=== PATIENT | male | born 1990 | race Caucasian/White ===

== ENCOUNTER 2022-09-17 11:13 | Outpatient (CLI) | payer BC, SELFPAY ==
[2022-09-17 11:28] LABS: Basophils Absolute Auto 0.09 K/mm3 (0.00-0.10); Basophils Percent Auto 0.9 % (0.0-1.0); Eosinophils Absolute Auto 0.34 K/mm3 (0.02-0.50); Eosinophils Percent Auto 3.5 % (1.0-6.0); Hematocrit 42.3 % (40.0-54.0); Immature Granulocyte Absolute 0.03 K/mm3 (0.00-0.00); Immature Granulocyte Percent A 0.3 % (0.0-0.0); Lymphocytes Absolute Auto 2.65 K/mm3 (1.10-4.50); Lymphocytes Percent Auto 27.6 % (18.0-42.0); Mean Corpuscular HGB Conc 33.1 g/dL (32.0-36.0); Mean Corpuscular Volume 87.8 fL (78.0-102.0); Mean Platelet Volume 10.6 fl (8.7-11.0); Monocytes Absolute Auto 0.63 K/mm3 (0.10-0.90); Monocytes Percent Auto 6.6 % (2.0-11.0); Neutrophils Absolute Auto 5.9 K/mm3 (1.7-7.2); Neutrophils Percent Auto 61.1 % (50.0-70.0); Platelet Count Result 191 K/mm3 (150-420); Red Blood Count 4.82 M/mm3 (4.70-6.10); Red Cell Distribution Width 12.6 % (11.6-14.4); White Blood Count 9.6 K/mm3 (4.8-10.8)
[2022-09-17 12:07] LABS: Alanine Aminotransferase 35 U/L (16-63); Albumin Level 4.1 g/dL (3.4-5.0); Alkaline Phosphatase 73 U/L (46-116); Anion Gap 5 mmol/L (8-16); Aspartate Amino Transferase 19 U/L (15-37); Bilirubin,Total 0.7 mg/dL (0.00-1.00); Blood Urea Nitrogen 12 mg/dL (7-18); Calcium 8.9 mg/dL (8.5-10.1); Carbon Dioxide 32 mmol/L (21-32); Chloride 107 mmol/L (98-108); Estimated Glomerular Filt Rate > 60; Glucose 90 mg/dL (70-99); Osmolality Calculated 297 mOsm/kg (285-295); Potassium 3.8 mmol/L (3.5-5.1); Sodium 144 mmol/L (136-145); Total Protein 7.4 g/dL (6.4-8.2)
== END 2022-09-17 11:14 | disposition home or self-care (01) ==
LOC: CHSLAB 11:17
PROVIDERS: PCP Family Medicine; Visit Provider Family Medicine
DX: Z00.00 Encounter for general adult medical examination without abnormal findings (principal)
CPT/HCPCS: 36415; 80053; 85025

== ENCOUNTER 2023-07-11 21:51 | Emergency (ER) | payer OTHER, SELFPAY ==
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
--- NOTE | 2023-07-11 21:54 | ECG_ITS ---
SEE SCANNED COPY FOR CONFIRMED REPORT MTDD
[2023-07-11 21:55] VITALS: BP 140/79; PULSE 99; RESP 20; TEMP 36.6; O2SAT 98
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
--- NOTE | 2023-07-11 22:15 | PC.NURSE ---
Pt taken to shower and given soap to completely wash and clean residue and given scrubs to wear home.
[2023-07-11 22:23] LABS: Base Excess ABG -0.4 mmol/L (0-2); HCO3 ABG 23.9 mmol/L (23-29); Oxygen Content ABG 20.4 %vol (16.0-22.0); Oxygen Saturation ABG 97.2 % (95-97); Oxyhemoglobin 96.2 % (94-100); PCO2 ABG 38.4 mmHg (35-45); PO2 ABG 96.5 mmHg (80-90); pH ABG 7.41 (7.35-7.45)
[2023-07-11 22:24] LABS: Device ROOM AIR; Modified Allen's Test Pass; Site Drawn RIGHT RADIAL
--- NOTE | 2023-07-11 22:49 | PC.NURSE ---
Pts tests all negative and cleared. Pt has no c/o or sxs, VSS. POC to d/c home discussed c pt.
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
[2023-07-11 23:13] VITALS: BP 128/74; PULSE 78; RESP 18; TEMP 36.6; O2SAT 98
== END 2023-07-11 23:13 | disposition home or self-care (01) ==
PROVIDERS: Emergency Provider Emergency Medicine; PCP Family Medicine
DX: T59.91XA Toxic effect of unspecified gases, fumes and vapors, accidental (unintentional), initial encounter (principal); R51.9 Headache, unspecified; F12.90 Cannabis use, unspecified, uncomplicated
CPT/HCPCS: 36600; 71045; 82805; 93005; 99283

== ENCOUNTER 2024-05-17 13:42 | Outpatient (CLI) | payer BC, SELFPAY ==
[2024-05-17 13:59] LABS: Basophils Absolute Auto 0.08 K/mm3 (0.00-0.10); Basophils Percent Auto 0.9 % (0.0-1.0); Eosinophils Absolute Auto 0.87 K/mm3 (0.02-0.50); Eosinophils Percent Auto 9.8 % (1.0-6.0); Hematocrit 45.5 % (40.0-54.0); Hemoglobin 14.8 g/dL (14.0-18.0); Immature Granulocyte Absolute 0.02 K/mm3 (0.00-0.00); Immature Granulocyte Percent A 0.2 % (0.0-0.0); Lymphocytes Absolute Auto 2.68 K/mm3 (1.10-4.50); Lymphocytes Percent Auto 30.3 % (18.0-42.0); Mean Corpuscular HGB Conc 32.5 g/dL (32-36); Mean Corpuscular Hemoglobin 28.9 pg (27.0-31.0); Mean Corpuscular Volume 88.9 fL (78.0-102.0); Mean Platelet Volume 10.5 fl (8.7-11.0); Monocytes Absolute Auto 0.78 K/mm3 (0.10-0.90); Monocytes Percent Auto 8.8 % (2.0-11.0); Neutrophils Absolute Auto 4.42 K/mm3 (1.70-7.20); Platelet Count Result 242 K/mm3 (150-420); Red Blood Count 5.12 M/mm3 (4.70-6.10); Red Cell Distribution Width 13.2 % (11.6-14.4); White Blood Count 8.9 K/mm3 (4.8-10.8)
[2024-05-17 15:06] LABS: Alanine Aminotransferase 70 U/L (16-63); Albumin Level 4.1 g/dL (3.4-5.0); Alkaline Phosphatase 69 U/L (46-116); Anion Gap 10 mmol/L (4-12); Aspartate Amino Transferase 33 U/L (15-37); Bilirubin,Total 0.6 mg/dL (0.00-1.00); Blood Urea Nitrogen 17 mg/dL (7-18); Calcium 9.3 mg/dL (8.5-10.1); Carbon Dioxide 28 mmol/L (21-32); Chloride 105 mmol/L (98-108); Estimated Glomerular Filt Rate > 60; Glucose 98 mg/dL (70-99); Osmolality Calculated 297 mOsm/kg (285-295); Potassium 4.8 mmol/L (3.5-5.1); Sodium 143 mmol/L (136-145); Total Protein 7.5 g/dL (6.4-8.2)
[2024-05-17 15:10] LABS: Thyroid Stimulating Hormone Reflex 10.36 u/IU/mL (0.36-3.74)
[2024-05-17 15:42] LABS: Free T4 Free Thyroxine Reflex 0.81 ng/dL (0.76-1.46)
== END 2024-05-17 13:43 | disposition home or self-care (01) ==
LOC: CHSLAB 13:43
PROVIDERS: PCP Family Medicine; Visit Provider Family Medicine
DX: Z00.00 Encounter for general adult medical examination without abnormal findings (principal); E03.9 Hypothyroidism, unspecified
CPT/HCPCS: 36415; 80053; 84439; 84443; 85025